=== PATIENT | female | born 1945 | race Caucasian/White ===

== ENCOUNTER → 2016-11-10 | Outpatient (CLI) | payer OTHER | END | disposition home or self-care (01) | LOC: CFH 12:19 | PROVIDERS: ATTEND Internal Medicine | DX: M13.841 Other specified arthritis, right hand (principal); M13.842 Other specified arthritis, left hand ==

== ENCOUNTER 2016-11-25 10:48 | Emergency (ER) | payer OTHER ==
[~2016-11-25] VITALS: Ht 167.6 cm; Wt 83.0 kg
[2016-11-25 11:02] VITALS: BP 128/53
[2016-11-25] MEDS ORDERED: OMEP40CA6 PO (11:31)
[2016-11-25] MEDS ORDERED: WARF7.5T6 PO (11:31)
[2016-11-25] MEDS ORDERED: POTA10TA5 PO (11:31)
[2016-11-25] MEDS ORDERED: METF10002 PO (11:31)
[2016-11-25] MEDS ORDERED: DIGO125T10 PO (11:31)
[2016-11-25] MEDS ORDERED: LORA0.5T PO (11:31)
[2016-11-25] MEDS ORDERED: METO50TA82 PO (11:31)
[2016-11-25] MEDS ORDERED: FENO134C PO (11:31)
[2016-11-25] MEDS ORDERED: FURO80TA3 PO (11:31)
[2016-11-25] MEDS ORDERED: HYDR-3240 PO ×2 (11:31)
[2016-11-25] MEDS ORDERED: ATOR40TA78 PO (11:31)
[2016-11-25] MEDS ORDERED: LOSA50TA6 PO (11:31)
[2016-11-25] MEDS ORDERED: ACET500T76 PO (11:31)
[2016-11-25] MEDS ORDERED: LEVO88TA4 PO (11:31)
[2016-11-25] MEDS ORDERED: CITA40TA5 PO (11:31)
[2016-11-25] MEDS ORDERED: TOBR5DRO3 EACHEYE (11:31)
[2016-11-25] MEDS ORDERED: MULT-658 PO (11:38)
[2016-11-25] MEDS ORDERED: METF500T4 PO (11:38)
[2016-11-25 11:39] LABS: BLOOD UREA NITROGEN 14 mg/dL (7-18)
[2016-11-25] MEDS ORDERED: AZIT500T77 PO (11:40)
[2016-11-25] MEDS ORDERED: OMEG1CAP34 PO (11:40)
[2016-11-25 11:44] LABS: IS PT STATUS REG ER OR PRE ER? YES
== END 2016-11-25 13:37 | disposition home or self-care (01) ==
LOC: ED 13:31
DX: J20.9 Acute bronchitis, unspecified (principal); J41.1 Mucopurulent chronic bronchitis; E11.9 Type 2 diabetes mellitus without complications; I50.9 Heart failure, unspecified; Z90.710 Acquired absence of both cervix and uterus; Z87.891 Personal history of nicotine dependence; E89.0 Postprocedural hypothyroidism
CPT/HCPCS: 36415; 80048; 80162; 82040; 84484; 85025; 85610; 93005; 99285

== ENCOUNTER → 2017-01-20 | Outpatient (CLI) | payer OTHER ==
[~2017-01-20] MED LIST: ACET500T71 PO; ATOR40TA78 PO; AZIT500T77 PO; CITA40TA5 PO; DIGO125T10 PO; FENO134C PO; FURO80TA3 PO; HYDR-3240 PO; LEVO88TA4 PO; LORA0.5T PO; LOSA50TA6 PO; METF10002 PO; METF500T4 PO; METO50TA82 PO; MULT-658 PO; OMEG1CAP34 PO; OMEP40CA6 PO; POTA10TA5 PO; REGADENOSON 0.4 MG/5 ML SYRINGE ONE; TOBR5DRO3 EACHEYE; WARF7.5T6 PO
== END | disposition home or self-care (01) ==
LOC: CFH 09:07
PROVIDERS: ATTEND Internal Medicine Cardiovascular Disease
DX: I11.0 Hypertensive heart disease with heart failure (principal); I50.23 Acute on chronic systolic (congestive) heart failure; I25.9 Chronic ischemic heart disease, unspecified; I42.9 Cardiomyopathy, unspecified
CPT/HCPCS: 78452; 93017; A9502; J2785

== ENCOUNTER → 2017-01-24 | Outpatient (CLI) | payer OTHER ==
[~2017-01-24] MED LIST changes: -REGADENOSON 0.4 MG/5 ML SYRINGE ONE
== END | disposition home or self-care (01) ==
LOC: CFH 13:11
PROVIDERS: ATTEND Internal Medicine Cardiovascular Disease
DX: I51.7 Cardiomegaly (principal); E11.21 Type 2 diabetes mellitus with diabetic nephropathy
CPT/HCPCS: 71020

== ENCOUNTER 2017-02-03 07:52 | Day surgery (SDC) | payer OTHER ==
[2017-02-02 11:26] LABS: BLOOD UREA NITROGEN 18 mg/dL (7-18)
[~2017-02-03] VITALS: Ht 168.9 cm; Wt 77.3 kg
[2017-02-03] MEDS ORDERED: SODIUM CHLORIDE 0.9% 1,000 ML IV SCH ×2 (09:54→13:26)
[2017-02-03] MEDS ORDERED: BISACODYL 10 MG SUPP PR PRN (10:00)
[2017-02-03] MEDS ORDERED: ONDANSETRON 2MG/ML, 2ML IVPush PRN (10:00)
[2017-02-03] MEDS ORDERED: ACETAMINOPHEN 325 MG TABLET PO PRN (10:00)
[2017-02-03] MEDS ORDERED: BISACODYL 5 MG EC TABLET PO PRN (10:00)
[2017-02-03] MEDS ORDERED: APIX5TAB PO (10:14)
[2017-02-03] MEDS ORDERED: LIDOCAINE 2%, 20ML ONE (11:39)
[2017-02-03] MEDS ORDERED: FENTANYL PF 100 MCG/2ML ONE (11:39)
[2017-02-03] MEDS ORDERED: MIDAZOLAM 1 MG/ML, 5ML ONE (11:39)
[2017-02-03] MEDS ORDERED: ACETAMINOPHEN 325 MG TABLET ONE (13:56)
[2017-02-03] MEDS ORDERED: ZOLPIDEM 5MG TABLET PO PRN (21:00)
== END 2017-02-03 16:16 | disposition home or self-care (01) ==
LOC: CACL 07:52
PROVIDERS: ATTEND Internal Medicine Cardiovascular Disease
DX: I42.9 Cardiomyopathy, unspecified (principal); I48.2 Chronic atrial fibrillation; I34.0 Nonrheumatic mitral (valve) insufficiency; R94.39 Abnormal result of other cardiovascular function study; I25.89 Other forms of chronic ischemic heart disease; E11.9 Type 2 diabetes mellitus without complications; E78.2 Mixed hyperlipidemia; E03.9 Hypothyroidism, unspecified; G43.909 Migraine, unspecified, not intractable, without status migrainosus; K21.9 Gastro-esophageal reflux disease without esophagitis; F41.9 Anxiety disorder, unspecified; I10 Essential (primary) hypertension; F32.9 Major depressive disorder, single episode, unspecified; K58.9 Irritable bowel syndrome, unspecified; Z79.01 Long term (current) use of anticoagulants; Z87.39 Personal history of other diseases of the musculoskeletal system and connective tissue
CPT/HCPCS: 36415; 71020; 80048; 85025; 93458; 99156; C1894; C8929; J2250; J3010; J3490; Q9967

== ENCOUNTER → 2017-03-03 | Outpatient (CLI) | payer OTHER ==
[~2017-03-03] MED LIST changes: +APIX5TAB PO; +AZIT500T5 PO; -AZIT500T77 PO
== END | disposition home or self-care (01) ==
LOC: CFH 13:18
PROVIDERS: ATTEND Internal Medicine
DX: Z12.31 Encounter for screening mammogram for malignant neoplasm of breast (principal); Z13.820 Encounter for screening for osteoporosis; N95.8 Other specified menopausal and perimenopausal disorders; N63 Unspecified lump in breast
CPT/HCPCS: 77080; G0202

== ENCOUNTER 2017-08-25 07:25 | Observation (INO) | payer OTHER ==
[2017-08-24 11:01] VITALS: BP 132/60
[2017-08-24 11:54] LABS: BASOPHILS # (AUTO) 0.03 x10^3/uL (0-0.1); BASOPHILS % (AUTO) 1 % (0-1); EOSINOPHILS # (AUTO) 0.16 x10^3/uL (0-0.4); EOSINOPHILS % (AUTO) 2 % (1-7); LYMPHOCYTES # (AUTO) 2.46 x10^3/uL (1-3.4); LYMPHOCYTES % (AUTO) 32 % (22-44); MD NO; MEAN CORPUSCULAR HEMOGLOBIN 30.4 pg (27.0-34.8); MEAN CORPUSCULAR HGB CONC 34.1 g/dL (32.4-35.8); MEAN CORPUSCULAR VOLUME 89.2 fL (80-100); MEAN PLATELET VOLUME 7.7 fL (7.4-10.4); MONOCYTES # (AUTO) 0.47 x10^3/uL (0.2-0.8); MONOCYTES % (AUTO) 6 % (2-9); NEUTROPHILS # (AUTO) 4.48 x10^3/uL (1.8-6.8); NEUTROPHILS % (AUTO) 59 % (42-75); PLATELET COUNT 277 x10^3/uL (130-400); RED BLOOD COUNT 4.73 x10^6/uL (3.82-5.3); RED CELL DISTRIBUTION WIDTH 14.3 % (9.6-15.2)
[2017-08-24 11:58] LABS: ALBUMIN 3.9 g/dL (3.4-5.0); ANION GAP 7 mmol/L (5-15); CALCIUM 9.3 mg/dL (8.5-10.1); CHLORIDE 102 mmol/L (98-107)
[2017-08-24 12:00] LABS: PROTHROMBIN TIME 10.3 Seconds (9.6-11.5)
[2017-08-24 12:03] LABS: ALANINE AMINOTRANSFERASE 29 U/L (12-78); ALKALINE PHOSPHATASE 127 U/L (45-117); BILIRUBIN,TOTAL 0.6 mg/dL (0.2-1.0); CREATININE 1.02 mg/dL (0.55-1.02); TOTAL PROTEIN 7.5 g/dL (6.4-8.2)
[~2017-08-25] VITALS: Ht 168.9 cm; Wt 90.0 kg
[~2017-08-25 07:25] MED LIST changes: +SPIR25TA3 PO
[2017-08-25] MEDS: SODIUM CHLORIDE 0.9% 1,000 ML IV SCH ×3 (07:34→23:34)
[2017-08-25] MEDS ORDERED: CEFAZOLIN PMX 1GM/50ML 50 ML IVPB ONE (08:00)
[2017-08-25] MEDS ORDERED: FENTANYL PF 100 MCG/2ML ONE (09:13)
[2017-08-25] MEDS ORDERED: CEFAZOLIN 1,000 MG ONE (10:22)
[2017-08-25] MEDS ORDERED: LIDOCAINE 2%, 20ML ONE (10:22)
[2017-08-25] MEDS ORDERED: ONDANSETRON 2MG/ML, 2ML ONE (10:29)
[2017-08-25] MEDS ORDERED: SUCCINYLCHOLINE 20 MG/ML, 10ML ONE (10:29)
[2017-08-25] MEDS ORDERED: DEXAMETHASONE 4 MG/ML, 1ML ONE (10:29)
[2017-08-25] MEDS ORDERED: PROPOFOL 10 MG/ML, 20ML ONE (10:29)
[2017-08-25] MEDS ORDERED: ROCURONIUM 10 MG/ML,10ML ONE (10:29)
[2017-08-25] MEDS ORDERED: PHENYLEPHRINE 10 MG/ML ONE (10:29)
[2017-08-25] MEDS ORDERED: HYDROcodone/APAP 5/325 TABLET PO PRN (11:30)
[2017-08-25] MEDS ORDERED: ZOLPIDEM 5MG TABLET PO PRN (11:30)
[2017-08-25] MEDS ORDERED: ONDANSETRON 2MG/ML, 2ML IV PRN (11:30)
[2017-08-25] MEDS ORDERED: ACETAMINOPHEN 325 MG TABLET PO PRN ×2 (11:30→12:00)
[2017-08-25] MEDS ORDERED: PROMETHAZINE 12.5 MG SUPP PR PRN (12:00)
[2017-08-25] MEDS ORDERED: hydrALAzine 20 MG/ML, 1ML IV PRN (12:00)
[2017-08-25] MEDS ORDERED: HYDROmorphone 1 MG/ML, 1ML IV PRN (12:00)
[2017-08-25] MEDS ORDERED: OXYcodone 5 MG/5 ML ORAL.SOL UDC PO PRN (12:00)
[2017-08-25] MEDS ORDERED: FENTANYL PF 100 MCG/2ML IV PRN (12:00)
[2017-08-25] MEDS ORDERED: MEPERIDINE/PF 25MG/0.5ML IVPush PRN (12:00)
[2017-08-25] MEDS ORDERED: ONDANSETRON 2MG/ML, 2ML IVPush PRN (12:00)
[2017-08-25] MEDS ORDERED: LORazepam 0.5MG TABLET PO SCH (12:00)
[2017-08-25] MEDS ORDERED: ALBUTEROL SULFATE 2.5 MG/3 ML NPPB PRN (12:00)
[2017-08-25] MEDS ORDERED: LABETALOL 5MG/ML, 20ML IV PRN (12:00)
[2017-08-25] MEDS ORDERED: MIDAZOLAM 1 MG/ML, 2ML IV PRN (12:00)
[2017-08-25] MEDS ORDERED: ACETAMINOPHEN 650 MG/20.3 ML UDC ONE (12:38)
[2017-08-25] MEDS ORDERED: OXYcodone 5 MG/5 ML ORAL.SOL UDC ONE (12:39)
[2017-08-25] MEDS: TOBRAMYCIN/DEXAMETH OPHTH SUSP 2.5ML EACHEYE SCH ×2 (14:23→20:54)
[2017-08-25] MEDS ORDERED: FURO40TA6 PO (14:32)
[2017-08-25 14:34] VITALS: BP 105/61
[2017-08-25 14:53] VITALS: BP 111/63
[2017-08-25] MEDS: ACETAMINOPHEN 500 MG TABLET PO SCH ×2 (16:00→20:44)
[2017-08-25] MEDS ORDERED: METO-95 PO (16:23)
[2017-08-25] MEDS: CEFAZOLIN PMX 1GM/50ML 50 ML IVPB SCH (18:39)
[2017-08-25 20:04] VITALS: BP 121/72
[2017-08-25] MEDS: metFORMIN 500 MG TABLET PO SCH (20:44)
[2017-08-25] MEDS: SODIUM CHLORIDE FLUSH 10ML SYR IVF SCH (20:44)
[2017-08-25] MEDS ORDERED: ATORVASTATIN 40 MG TABLET PO SCH (21:00)
[2017-08-25] MEDS ORDERED: METOPROLOL TARTRATE 50 MG TABLET PO SCH (21:00)
[2017-08-26 01:01] VITALS: BP 105/61
[2017-08-26] MEDS: CEFAZOLIN PMX 1GM/50ML 50 ML IVPB SCH (03:39)
[2017-08-26] MEDS: TOBRAMYCIN/DEXAMETH OPHTH SUSP 2.5ML EACHEYE SCH ×2 (05:50→11:00)
[2017-08-26] MEDS ORDERED: LEVOTHYROXINE 88 MCG TABLET PO SCH (06:00)
[2017-08-26] MEDS ORDERED: OMEPRAZOLE 20 MG CAPSULE.DR PO SCH (07:30)
[2017-08-26] MEDS: SODIUM CHLORIDE 0.9% 1,000 ML IV SCH (07:34)
[2017-08-26 08:44] VITALS: BP 130/67
[2017-08-26] MEDS ORDERED: FUROSEMIDE 80 MG TABLET PO SCH (09:00)
[2017-08-26] MEDS ORDERED: CITALOPRAM 20 MG TABLET PO SCH (09:00)
[2017-08-26] MEDS ORDERED: MULTIVITAMIN 1 TABLET PO SCH (09:00)
[2017-08-26] MEDS ORDERED: LOSARTAN 50MG TABLET PO SCH (09:00)
[2017-08-26] MEDS ORDERED: POTASSIUM CHLORIDE 10 MEQ TABLET.ER PO SCH (09:00)
[2017-08-26] MEDS ORDERED: FENOFIBRATE 145 MG TABLET PO SCH (09:00)
[2017-08-26] MEDS ORDERED: OMEGA-3/FISH OIL CAPSULE PO SCH (09:00)
[2017-08-26] MEDS ORDERED: METOPROLOL TARTRATE 50 MG TABLET PO SCH (09:00)
[2017-08-26] MEDS ORDERED: SPIRONOLACTONE 25 MG TABLET PO SCH (09:00)
[2017-08-26] MEDS ORDERED: DIGOXIN 0.125 MG TABLET PO SCH (09:00)
[2017-08-26] MEDS: ACETAMINOPHEN 500 MG TABLET PO SCH (09:04)
[2017-08-26] MEDS: metFORMIN 500 MG TABLET PO SCH (09:04)
[2017-08-26] MEDS: SODIUM CHLORIDE FLUSH 10ML SYR IVF SCH (09:06)
[2017-08-26] MEDS ORDERED: METO-95 PO (11:13)
[2017-08-26 13:38] VITALS: BP 115/67
== END 2017-08-26 16:04 | disposition home or self-care (01) ==
LOC: CACL 07:25 → ORIP 11:22 → 5SO 12:47
PROVIDERS: ADMIT Internal Medicine Cardiovascular Disease; ATTEND Internal Medicine Cardiovascular Disease
DX: I11.0 Hypertensive heart disease with heart failure (principal); I50.22 Chronic systolic (congestive) heart failure; F32.9 Major depressive disorder, single episode, unspecified; E11.29 Type 2 diabetes mellitus with other diabetic kidney complication; N28.9 Disorder of kidney and ureter, unspecified; I48.2 Chronic atrial fibrillation; E78.2 Mixed hyperlipidemia; E11.59 Type 2 diabetes mellitus with other circulatory complications; E03.9 Hypothyroidism, unspecified; I42.9 Cardiomyopathy, unspecified; I34.0 Nonrheumatic mitral (valve) insufficiency; Z79.01 Long term (current) use of anticoagulants
CPT/HCPCS: 33249; 36415; 71045; 71046; 80053; 85025; 85610; 96365; 96375; C1722; C1892; C1895; G0378; J0330; J0690; J1100; J2370; J2405; J2704; J3010; J3490

== ENCOUNTER 2017-11-06 12:05 | Observation (INO) | payer OTHER ==
[~2017-11-06] VITALS: Ht 167.6 cm; Wt 81.4 kg
[~2017-11-06 12:05] MED LIST changes: +FURO40TA6 PO; +METO-95 PO; +WARF7.5T46 PO; -WARF7.5T6 PO
[2017-11-06] MEDS ORDERED: CEFAZOLIN PMX 1GM/50ML 50 ML IVPB ONE (12:30)
[2017-11-06] MEDS: SODIUM CHLORIDE 0.9% 1,000 ML IV SCH ×2 (12:30→20:30)
[2017-11-06 12:35] VITALS: BP 139/60
[2017-11-06 12:52] LABS: BASOPHILS # (AUTO) 0.03 x10^3/uL (0-0.1); BASOPHILS % (AUTO) 0 % (0-1); EOSINOPHILS # (AUTO) 0.16 x10^3/uL (0-0.4); EOSINOPHILS % (AUTO) 2 % (1-7); LYMPHOCYTES # (AUTO) 2.43 x10^3/uL (1-3.4); LYMPHOCYTES % (AUTO) 29 % (22-44); MD NO; MEAN CORPUSCULAR HEMOGLOBIN 30.2 pg (27.0-34.8); MEAN CORPUSCULAR HGB CONC 33.5 g/dL (32.4-35.8); MEAN CORPUSCULAR VOLUME 90.3 fL (80-100); MEAN PLATELET VOLUME 7.6 fL (7.4-10.4); MONOCYTES # (AUTO) 0.46 x10^3/uL (0.2-0.8); MONOCYTES % (AUTO) 6 % (2-9); NEUTROPHILS # (AUTO) 5.28 x10^3/uL (1.8-6.8); NEUTROPHILS % (AUTO) 63 % (42-75); PLATELET COUNT 311 x10^3/uL (130-400); RED BLOOD COUNT 4.76 x10^6/uL (3.82-5.3)
[2017-11-06] MEDS ORDERED: METO25TA91 PO (12:55)
[2017-11-06] MEDS ORDERED: SACU1TAB PO (12:55)
[2017-11-06] MEDS ORDERED: CEFAZOLIN 1,000 MG ONE (12:58)
[2017-11-06] MEDS ORDERED: CEFAZOLIN PMX 1GM/50ML 50 ML ONE (12:58)
[2017-11-06] MEDS ORDERED: FENTANYL PF 100 MCG/2ML ONE (12:58)
[2017-11-06] MEDS ORDERED: MIDAZOLAM 1 MG/ML, 5ML ONE (12:58)
[2017-11-06] MEDS ORDERED: BIOT1CAP3 PO (12:58)
[2017-11-06] MEDS ORDERED: LIDOCAINE 2%, 10ML ONE ×2 (12:58→14:09)
[2017-11-06 12:59] LABS: INTERNATIONAL NORMALIZED RATIO 0.99 (0.93-1.1); PROTHROMBIN TIME 10.2 Seconds (9.6-11.5)
[2017-11-06] MEDS ORDERED: PLEASE ENTER HEIGHT AND WEIGHT MC SCH (13:00)
[2017-11-06 13:03] LABS: ANION GAP 11 mmol/L (5-15); CALCIUM 9.5 mg/dL (8.5-10.1); CHLORIDE 104 mmol/L (98-107); CREATININE 1.06 mg/dL (0.55-1.02)
[2017-11-06] MEDS ORDERED: HYDROcodone/APAP 5/325 TABLET ONE (15:35)
[2017-11-06] MEDS: HYDROcodone/APAP 5/325 TABLET PO PRN ×2 (15:36→22:33)
[2017-11-06 18:53] VITALS: BP 102/66
[2017-11-06] MEDS: ACETAMINOPHEN 325 MG TABLET PO PRN (19:10)
[2017-11-06] MEDS: SODIUM CHLORIDE FLUSH 10ML SYR IVF SCH (22:33)
[2017-11-06] MEDS: CEFAZOLIN PMX 1GM/50ML 50 ML IVPB SCH (23:27)
[2017-11-07 00:39] VITALS: BP 138/53
[2017-11-07] MEDS: HYDROcodone/APAP 5/325 TABLET PO PRN (03:34)
[2017-11-07 07:24] VITALS: BP 115/70
[2017-11-07] MEDS: SODIUM CHLORIDE FLUSH 10ML SYR IVF SCH (09:04)
[2017-11-07] MEDS: ACETAMINOPHEN 325 MG TABLET PO PRN (09:04)
[2017-11-07] MEDS: CEFAZOLIN PMX 1GM/50ML 50 ML IVPB SCH (09:05)
== END 2017-11-07 12:38 | disposition home or self-care (01) ==
LOC: CACL 12:05 → 5SO 16:03 → CACL 22:20 → 5SO 22:21 → DCLOUNGE 11-07 12:30
PROVIDERS: ADMIT Internal Medicine Cardiovascular Disease; ATTEND Internal Medicine Cardiovascular Disease
DX: T82.120A Displacement of cardiac electrode, initial encounter (principal); E11.9 Type 2 diabetes mellitus without complications; E78.2 Mixed hyperlipidemia; E03.9 Hypothyroidism, unspecified; I50.20 Unspecified systolic (congestive) heart failure; K21.9 Gastro-esophageal reflux disease without esophagitis; I11.0 Hypertensive heart disease with heart failure; I42.9 Cardiomyopathy, unspecified; I48.2 Chronic atrial fibrillation; Z95.810 Presence of automatic (implantable) cardiac defibrillator; Y71.2 Prosthetic and other implants, materials and accessory cardiovascular devices associated with adverse incidents
CPT/HCPCS: 33215; 36415; 71045; 80048; 85025; 85610; 96365; 96375; 99156; 99157; C1892; G0378; J0690; J2250; J3010; J3490

== ENCOUNTER → 2017-12-06 | Outpatient (CLI) | payer OTHER ==
[~2017-12-06] MED LIST changes: +BIOT1CAP3 PO; +METO25TA91 PO; +SACU1TAB PO
== END | disposition home or self-care (01) ==
LOC: CFH 08:45
PROVIDERS: ATTEND Internal Medicine Cardiovascular Disease
DX: I51.7 Cardiomegaly (principal); I48.2 Chronic atrial fibrillation; I42.9 Cardiomyopathy, unspecified; I50.22 Chronic systolic (congestive) heart failure; Z95.810 Presence of automatic (implantable) cardiac defibrillator
CPT/HCPCS: 71046

== ENCOUNTER 2017-12-15 08:43 | Observation (INO) | payer OTHER ==
[2017-12-13 10:50] VITALS: BP 127/55
[2017-12-13 11:07] LABS: BASOPHILS # (AUTO) 0.05 x10^3/uL (0-0.1); BASOPHILS % (AUTO) 1 % (0-1); EOSINOPHILS % (AUTO) 2 % (1-7); LYMPHOCYTES # (AUTO) 3.14 x10^3/uL (1-3.4); LYMPHOCYTES % (AUTO) 35 % (22-44); MD NO; MEAN CORPUSCULAR HEMOGLOBIN 29.9 pg (27.0-34.8); MEAN CORPUSCULAR HGB CONC 33.2 g/dL (32.4-35.8); MEAN PLATELET VOLUME 7.8 fL (7.4-10.4); MONOCYTES # (AUTO) 0.61 x10^3/uL (0.2-0.8); MONOCYTES % (AUTO) 7 % (2-9); NEUTROPHILS % (AUTO) 56 % (42-75); PLATELET COUNT 301 x10^3/uL (130-400); RED BLOOD COUNT 4.57 x10^6/uL (3.82-5.3); RED CELL DISTRIBUTION WIDTH 13.9 % (9.6-15.2)
[2017-12-13 11:11] LABS: ALBUMIN 3.7 g/dL (3.4-5.0); ANION GAP 7 mmol/L (5-15); CHLORIDE 104 mmol/L (98-107)
[2017-12-13 11:15] LABS: ALANINE AMINOTRANSFERASE 31 U/L (12-78); ALKALINE PHOSPHATASE 96 U/L (45-117); BILIRUBIN,TOTAL 0.6 mg/dL (0.2-1.0)
[~2017-12-15] VITALS: Ht 167.6 cm; Wt 90.5 kg
[2017-12-15] MEDS ORDERED: aloe vera PO (09:54)
[2017-12-15] MEDS ORDERED: SODIUM CHLORIDE 0.9% 1,000 ML IV SCH (10:03)
[2017-12-15] MEDS ORDERED: CEFAZOLIN PMX 1GM/50ML 50 ML IVPB ONE (10:30)
[2017-12-15] MEDS ORDERED: FENTANYL PF 250 MCG/5ML ONE (10:51)
[2017-12-15] MEDS ORDERED: ROCURONIUM 10 MG/ML,10ML ONE (11:10)
[2017-12-15] MEDS ORDERED: ONDANSETRON 2MG/ML, 2ML ONE (11:10)
[2017-12-15] MEDS ORDERED: SUCCINYLCHOLINE 20 MG/ML, 10ML ONE (11:10)
[2017-12-15] MEDS ORDERED: DEXAMETHASONE 4 MG/ML, 1ML ONE (11:10)
[2017-12-15] MEDS ORDERED: PROPOFOL 10 MG/ML, 20ML ONE (11:10)
[2017-12-15] MEDS ORDERED: LIDOCAINE/PF 1%, 30ML ONE (11:32)
[2017-12-15] MEDS ORDERED: CEFAZOLIN 1,000 MG ONE (11:32)
[2017-12-15] MEDS ORDERED: ACETAMINOPHEN 500 MG TABLET PO PRN (12:30)
[2017-12-15] MEDS ORDERED: OXYcodone 5 MG/5 ML ORAL.SOL UDC ONE (12:57)
[2017-12-15] MEDS ORDERED: ACETAMINOPHEN 650 MG/20.3 ML UDC ONE (12:57)
[2017-12-15] MEDS ORDERED: ACETAMINOPHEN 325 MG TABLET ONE (12:57)
[2017-12-15] MEDS ORDERED: ACETAMINOPHEN 325 MG TABLET PO PRN (13:00)
[2017-12-15] MEDS ORDERED: LORazepam 2 MG/ML, 1ML IVPush PRN (13:00)
[2017-12-15] MEDS ORDERED: MIDAZOLAM 1 MG/ML, 2ML IV PRN (13:00)
[2017-12-15] MEDS ORDERED: ONDANSETRON ODT 8 MG PO PRN (13:00)
[2017-12-15] MEDS ORDERED: hydrALAzine 20 MG/ML, 1ML IV PRN (13:00)
[2017-12-15] MEDS ORDERED: EPHEDRINE 50 MG/ML, 1ML IVPush PRN (13:00)
[2017-12-15] MEDS ORDERED: OXYcodone 5 MG/5 ML ORAL.SOL UDC PO PRN (13:00)
[2017-12-15] MEDS ORDERED: MORPHINE SULFATE 4 MG/ML, 1ML IVPush PRN (13:00)
[2017-12-15] MEDS ORDERED: FENTANYL PF 100 MCG/2ML ONE (13:01)
[2017-12-15] MEDS: FENTANYL PF 100 MCG/2ML IV PRN ×4 (13:03→13:21)
[2017-12-15 15:21] VITALS: BP 105/65
[2017-12-15] MEDS: CEFAZOLIN PMX 1GM/50ML 50 ML IVPB SCH (18:25)
[2017-12-15] MEDS: FUROSEMIDE 40 MG TABLET PO SCH (20:48)
[2017-12-15] MEDS: SACUBITRIL/VALSARTAN 24MG-26MG TAB PO SCH (20:48)
[2017-12-15] MEDS: metFORMIN 500 MG TABLET PO SCH (20:48)
[2017-12-15] MEDS: SODIUM CHLORIDE FLUSH 10ML SYR IVF SCH (20:48)
[2017-12-15 20:50] VITALS: BP 108/65
[2017-12-15] MEDS ORDERED: ATORVASTATIN 40 MG TABLET PO SCH (21:00)
[2017-12-15] MEDS ORDERED: ALOE VERA PO SCH (21:00)
[2017-12-15] MEDS: OXYcodone/APAP 5/325MG TABLET PO PRN (23:46)
[2017-12-16 01:56] VITALS: BP 122/70
[2017-12-16] MEDS: CEFAZOLIN PMX 1GM/50ML 50 ML IVPB SCH (03:43)
[2017-12-16] MEDS: OXYcodone/APAP 5/325MG TABLET PO PRN (06:07)
[2017-12-16] MEDS ORDERED: OMEPRAZOLE 20 MG CAPSULE.DR PO SCH (07:30)
[2017-12-16 07:33] VITALS: BP 101/61
[2017-12-16] MEDS: metFORMIN 500 MG TABLET PO SCH (08:40)
[2017-12-16] MEDS: SODIUM CHLORIDE FLUSH 10ML SYR IVF SCH (08:41)
[2017-12-16] MEDS: SACUBITRIL/VALSARTAN 24MG-26MG TAB PO SCH (08:41)
[2017-12-16] MEDS: FUROSEMIDE 40 MG TABLET PO SCH (08:41)
[2017-12-16] MEDS ORDERED: POTASSIUM CHLORIDE 10 MEQ TABLET.ER PO SCH (09:00)
[2017-12-16] MEDS ORDERED: FENOFIBRATE 145 MG TABLET PO SCH (09:00)
[2017-12-16] MEDS ORDERED: METOPROLOL SUCCINATE 100 MG TAB.ER.24H PO SCH (09:00)
[2017-12-16] MEDS ORDERED: SPIRONOLACTONE 25 MG TABLET PO SCH (09:00)
[2017-12-16] MEDS ORDERED: DIGOXIN 0.125 MG TABLET PO SCH (09:00)
[2017-12-16] MEDS ORDERED: CITALOPRAM 20 MG TABLET PO SCH (09:00)
[2017-12-16] MEDS ORDERED: MULTIVITAMIN 1 TABLET PO SCH (09:00)
[2017-12-16] MEDS ORDERED: LEVOTHYROXINE 88 MCG TABLET PO SCH (09:00)
[2017-12-16] MEDS ORDERED: OMEGA-3/FISH OIL CAPSULE PO SCH (09:00)
[2017-12-16 11:49] VITALS: BP 105/61
== END 2017-12-16 13:11 | disposition home or self-care (01) ==
LOC: CACL 08:43 → ORIP 12:19 → 5SO 15:17
PROVIDERS: ADMIT Internal Medicine Cardiovascular Disease; ATTEND Internal Medicine Cardiovascular Disease
DX: I49.01 Ventricular fibrillation (principal); I42.9 Cardiomyopathy, unspecified; I48.2 Chronic atrial fibrillation; I11.0 Hypertensive heart disease with heart failure; I50.22 Chronic systolic (congestive) heart failure; E11.9 Type 2 diabetes mellitus without complications; E78.5 Hyperlipidemia, unspecified; F32.9 Major depressive disorder, single episode, unspecified; Z95.810 Presence of automatic (implantable) cardiac defibrillator
CPT/HCPCS: 33216; 33223; 33244; 36415; 71045; 80053; 85025; 93641; 96365; 96375; C1892; C1895; G0378; J0330; J0690; J1100; J2405; J2704; J3010; J3490; Q9967

== ENCOUNTER → 2018-04-24 | Outpatient (CLI) | payer OTHER ==
[~2018-04-24] MED LIST changes: -LOSA50TA6 PO; +LOSA50TA7 PO; +METF500T17 PO; -METF500T4 PO; -SPIR25TA3 PO; +SPIR25TA5 PO; +aloe vera PO
== END | disposition home or self-care (01) ==
LOC: CFH 10:52
PROVIDERS: ATTEND Internal Medicine Cardiovascular Disease
DX: I08.3 Combined rheumatic disorders of mitral, aortic and tricuspid valves (principal); I42.9 Cardiomyopathy, unspecified; I10 Essential (primary) hypertension; E78.5 Hyperlipidemia, unspecified; Z95.0 Presence of cardiac pacemaker; Z79.01 Long term (current) use of anticoagulants
CPT/HCPCS: 93306

== ENCOUNTER → 2019-09-02 | Outpatient (CLI) | payer MEDICARE ==
[~2019-09-02] MED LIST changes: +ACET500T64 PO; -ACET500T71 PO; +AZIT500T10 PO; -AZIT500T5 PO; +LOSA50TA14 PO; -LOSA50TA7 PO; +OMEP40CA42 PO; -OMEP40CA6 PO
== END | disposition home or self-care (01) ==
LOC: CFH 15:45
PROVIDERS: ATTEND Internal Medicine Cardiovascular Disease
DX: I08.3 Combined rheumatic disorders of mitral, aortic and tricuspid valves (principal); I10 Essential (primary) hypertension; E78.5 Hyperlipidemia, unspecified; E11.9 Type 2 diabetes mellitus without complications
CPT/HCPCS: 93306